=== PATIENT | male | born 1995 | race Hispanic/Latino ===

== ENCOUNTER 2017-01-02 02:26 | Emergency (ER) | payer SELFPAY ==
[2017-01-02 02:30] VITALS: BMI 23.0
[2017-01-02] MEDS ORDERED: Silver Sulfadiazine 1% Cream (20 gm) TOP STA (02:50)
[2017-01-02] MEDS ORDERED: Silver Sulfadiazine 1% Cream (20 gm) ONE (02:54)
[2017-01-02 03:13] VITALS: O2SAT 99
--- NOTE | 2017-01-02 03:18 | C.PDOC ---
History Of Present Illness Patient is a 21 year old male who presents to the ER with a complaint of right 2nd finger pain and swelling that began 2 days ago. Patient states he thought it was a bug bite and squeezed it today with some discharge. Pain increased, prompting him to come in. 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 Denies trauma or injections to the area. Time Seen by Provider: 01/02/17 02:43 Chief Complaint (Nursing): Abnormal Skin Integrity History Per: Patient History/Exam Limitations: no limitations Onset/Duration Of Symptoms: Days (Yesterday) Current Symptoms Are (Timing): Still Present Location Of Injury: Right: Hand (2nd finger) Quality Of Symptoms: Painful, Swollen Recent travel outside of the [place]: No Past Medical History Reviewed: Historical Data, Nursing Documentation, Vital Signs Vital Signs: Last Vital Signs Temp 98 F 01/02/17 03:32 Pulse 78 01/02/17 03:32 Resp 16 01/02/17 03:32 BP 108/68 01/02/17 03:32 Pulse Ox 99 01/02/17 03:39 - Medical History PMH: No Chronic Diseases Surgical History: No Surg Hx Family History: States: Unknown Family Hx - Social History Hx Alcohol Use: No Hx Substance Use: Yes - Immunization History Hx Tetanus Toxoid Vaccination: No Hx Influenza Vaccination: No Hx Pneumococcal Vaccination: No Review Of Systems Musculoskeletal: Positive for: Hand Pain (2nd right finger) Physical Exam - Physical Exam Appears: Well, Non-toxic, No Acute Distress Skin: Warm, Dry Head: Atraumatic, Normacephalic Eye(s): bilateral: Normal Inspection, EOMI Nose: Normal Oral Mucosa: Moist Chest: Symmetrical Respiratory: No Accessory Muscle Use, Other (Speaking in complete sentences) Extremity: Normal ROM, Tenderness (Right 2nd finger), Capillary Refill (< 2 sec) , Swelling (Right 2nd MCP), Other (Erythema, right 2nd MCP, w/ 0.25 cm blister; no fluctuance or discharge) Pulses: Left Radial: Normal, Right Radial: Normal Neurological/Psych: Oriented x3, Normal Speech, Normal Motor, Normal Sensation, Other (No focal deficits) ED Course And Treatment O2 Sat by Pulse Oximetry: 99 (Room air) Pulse Ox Interpretation: Normal Progress Note: Silvadene applied. Cleocin PO and tetanus vaccine administered. Patient offered admission for further observation, however, patient refuses. Instructed to return to ER if symptoms worsen and to return in 2-3 days for wound check, will discharge home. Disposition - Disposition Disposition: HOME/ ROUTINE Disposition Time: 03:14 Condition: STABLE Additional Instructions: Return to ER in 24-48 hours for wound check or sooner if symptoms persist or worsen including increased redness, increased swelling and fever. Prescriptions: Bacitracin OINT 1 applic TP BID #1 tube Clindamycin [Cleocin] 300 mg PO Q6 #28 cap Instructions: Cellulitis (ED) - Clinical Impression Clinical Impression: Cellulitis - Scribe Statement The provider has reviewed the documentation as recorded by the Scribjasen Rodriguez All medical record entries made by the Lamineibjasen were at my direction and personally dictated by me. I have reviewed the chart and agree that the record accurately reflects my personal performance of the history, physical exam, medical decision making, and the department course for this patient. I have also personally directed, reviewed, and agree with the discharge instructions and disposition.
[2017-01-02 03:36] VITALS: BP 108/68; PULSE 78; RESP 16; TEMP 98
== END 2017-01-02 03:31 | disposition home or self-care (01) ==
LOC: C.ER 02:26
DX: L03.011 Cellulitis of right finger (principal)